=== PATIENT | female | born 1980 | race Caucasian/White ===

== ENCOUNTER 2019-12-08 13:16 | Outpatient (CLI) | payer BC ==
--- NOTE | 2019-12-08 13:38 | RAD ---
Exam: Single view of the pelvis HISTORY: Questionable IUD placement COMPARISON: None FINDINGS: A single view the pelvis shows no evidence of acute fracture or dislocation. No degenerativ e changes seen in either hip. An IUD is seen in the pelvis. IMPRESSION: IUD located in the pelvis without evidence of extrusion.
== END 2019-12-08 13:17 | disposition home or self-care (01) ==
LOC: SCSRAD 13:16
PROVIDERS: ATTEND Family Medicine
DX: Z30.431 Encounter for routine checking of intrauterine contraceptive device (principal)
CPT/HCPCS: 36415; 72170; 80053; 80061; 81001; 84443; 85025; 87480; 87510; 87660; 88142; G0123